=== PATIENT | male | born 1995 ===

== ENCOUNTER → 2019-02-05 20:33 | Outpatient (REF) | payer OTHER, SELFPAY ==
[2019-02-05 22:16] LABS: Alanine Aminotransferase 171 IU/L (21-72); Aspartate Aminotransferase 235 IU/L (17-59)
== END ==
LOC: LAB 20:33
PROVIDERS: Visit Provider Family Medicine
DX: I49.9 Cardiac arrhythmia, unspecified (principal); I25.2 Old myocardial infarction
CPT/HCPCS: 36415; 84450; 84460

== ENCOUNTER → 2019-02-06 19:17 | Outpatient (REF) | payer OTHER, SELFPAY ==
[2019-02-06 20:42] LABS: Hepatitis B Surface Antigen NEGATIVE s/c (NEGATIVE)
[2019-02-06 21:07] LABS: Hep C Virus Ab w/Reflex Quant NEGATIVE s/c (NEGATIVE)
== END ==
LOC: LAB 19:17
PROVIDERS: Visit Provider Family Medicine
DX: R94.5 Abnormal results of liver function studies (principal)
CPT/HCPCS: 36415; 82728; 86803; 87340